=== PATIENT | female | born 1960 | race American Indian/Alaskan Native ===

== ENCOUNTER 2017-05-12 06:21 | Emergency (ER) | payer OTHER ==
[2017-05-12 06:46] LABS: Basophils % (Auto) 0.3 % (0.0-1.8); Eosinophils % (Auto) 0.7 % (0.0-4.3); Hemoglobin 12.4 gm/dl (10.1-14.3); Mean Corpuscular HGB Conc 32 % (30-34); Mean Corpuscular Hemoglobin 26 pg (28-32); Mean Corpuscular Volume 82 fl (79-97); Platelet Count 284 K/mm3 (140-440); Red Blood Count 4.77 M/mm3 (3.65-5.03); White Blood Count 10.3 K/mm3 (4.5-11.0)
[2017-05-12 07:04] LABS: Anion Gap 19 mmol/L; Blood Urea Nitrogen 7 mg/dL (7-17); Carbon Dioxide 24 mmol/L (22-30); Chloride 97.9 mmol/L (98-107); Glucose 242 mg/dL (65-100); Potassium 3.9 mmol/L (3.6-5.0); Sodium 137 mmol/L (137-145)
[2017-05-12] MEDS ORDERED: NACL 0.9% 1000 ML 1,000 ML IV ONE ×2 (07:09→10:10)
[2017-05-12] MEDS ORDERED: TESSALON PERLES PO ONE (07:10)
[2017-05-12] MEDS ORDERED: DUONEB 0.5 MG-3 MG/3 ML SOLN IH ONE (07:10)
[2017-05-12] MEDS ORDERED: MUCINEX ER PO ONE (07:10)
--- NOTE | 2017-05-12 07:46 | XRay Report ---
Chest 2 views: History: Shortness of breath. Findings: Normal cardiomediastinal silhouette. Trachea is midline. No consolidation, pneumothorax or pleural effusion. Impression: No acute cardiopulmonary findings.
[2017-05-12] MEDS ORDERED: ZITHROMAX PO ONE (07:52)
[2017-05-12 08:20] LABS: ISTAT Base Excess 0; ISTAT DEVICE 0; ISTAT HCO3 25.2; ISTAT PCO2 42.3 (35-45); ISTAT PH 7.384 (7.35-7.45); ISTAT PO2 67 (80-105); ISTAT SO2 93; ISTAT TCO2 26
[2017-05-12] MEDS ORDERED: NACL ONE (10:55)
--- NOTE | 2017-05-12 11:45 | Cat Scan Report ---
CTA chest: History: Chest pain. Findings: No evidence of aortic aneurysm or pulmonary embolism. No pleural or pericardial effusion. No mediastinal mass. Normal lung parenchyma. No discrete nodularity or consolidation. Impression: No evidence of pulmonary embolism. No acute lung changes.
[2017-05-12 12:18] VITALS: BP 139/71
--- NOTE | 2017-05-12 14:21 | Emergency Department Report ---
HPI - General Chief Complaint: Upper Respiratory Infection Time Seen by Provider: 05/12/17 07:07 - HPI HPI: The patient is a 56-year-old female with a history of diabetes, whom presents for evaluation of cough and dyspnea. The patient reports coughing since noon yesterday, moderate severity, and associated with soreness of breath since midnight, moderate to severe, exacerbated with coughing or exertion, improved with rest. The patient denies fever, trauma to the chest, chest pain, syncope, hemoptysis, unilateral leg swelling, recent immobilization, history of DVT or PE , recent cancer or chemotherapy. ED Past Medical Hx - Past Medical History Previous Medical History?: Yes Hx Hypertension: Yes Hx Diabetes: Yes - Surgical History Hx Cholecystectomy: Yes Additional Surgical History: Obesity - Social History Smoking Status: Never Smoker Substance Use Type: None - Medications Home Medications: Home Medications Medication Instructions Recorded Confirmed Last Taken Type ALBUTEROL Inhaler [ProAir HFA 2 puff IH QID PRN #1 inhalation 05/12/17 Unknown Rx Inhaler] Azithromycin [Zithromax Z-ALYSSA] 250 mg PO QDAY #6 tablet 05/12/17 Unknown Rx Benzonatate [Tessalon Perles] 100 mg PO Q8HR #20 capsule 05/12/17 Unknown Rx ED Review of Systems ROS: Stated complaint: JAVIER Other details as noted in HPI Constitutional: denies: fever ENT: denies: throat or neck pain Respiratory: reports cough, shortness of breath Cardiovascular: denies: chest pain Endocrine: denies unexplained weight loss or gain Gastrointestinal: denies: abdominal pain, nausea Genitourinary: denies: dysuria Musculoskeletal: denies: leg swelling Skin: denies: rash Neurological: denies: headache Hematological/Lymphatic: denies: easy bleeding or easy bruising Psych: denies sadness or hopelessness Physical Exam - Physical Exam Vital Signs: Vital Signs 05/12/17 05/12/17 05/12/17 06:22 07:19 07:20 Temperature 98.2 F 98.2 F Pulse Rate 101 H 93 H Pulse Rate [ Bilateral Upper Lobe] Respiratory 20 18 Rate Respiratory Rate [Bilateral Upper Lobe] Blood Pressure 169/93 130/56 [Right] O2 Sat by Pulse 96 94 94 Oximetry 05/12/17 05/12/17 05/12/17 07:49 07:57 12:15 Temperature Pulse Rate 90 Pulse Rate [ 90 92 H Bilateral Upper Lobe] Respiratory 18 Rate Respiratory 18 18 Rate [Bilateral Upper Lobe] Blood Pressure 139/71 [Right] O2 Sat by Pulse 100 Oximetry Physical Exam: General: well-nourished, well-developed, no acute distress Head: Normocephalic, atraumatic Eyes: normal sclera ENT: Mucous membranes are pale and dry, nasal membrane edema and congestion present Neck: No neck stiffness, no cervical adenopathy Respiratory: Breath sounds equal bilaterally, no wheezing, rales, or rhonchi Cardio: S1 and S2 present, no murmurs, rubs, gallops, capillary refill is delayed Abdomen: Normoactive bowel sounds, soft abdomen, no abdominal tenderness, no rigidity, no guarding or rebound tenderness Musc: No pitting edema Skin: No rash Neuro: no facial drooping, normal speech Psych: Normal affect ED Course Vital Signs 05/12/17 05/12/17 05/12/17 06:22 07:19 07:20 Temperature 98.2 F 98.2 F Pulse Rate 101 H 93 H Pulse Rate [ Bilateral Upper Lobe] Respiratory 20 18 Rate Respiratory Rate [Bilateral Upper Lobe] Blood Pressure 169/93 130/56 [Right] O2 Sat by Pulse 96 94 94 Oximetry 05/12/17 05/12/17 05/12/17 07:49 07:57 12:15 Temperature Pulse Rate 90 Pulse Rate [ 90 92 H Bilateral Upper Lobe] Respiratory 18 Rate Respiratory 18 18 Rate [Bilateral Upper Lobe] Blood Pressure 139/71 [Right] O2 Sat by Pulse 100 Oximetry ED Medical Decision Making - Lab Data Result diagrams: 05/12/17 06:32 05/12/17 06:32 - Medical Decision Making The patient was seen and examined by myself. The patient is placed on a compressor repairer and continuous pulse ox. On initial evaluation, the patient was found to be in no distress. Evaluation orders were placed. The patient is given 1 L normal saline fluid bolus for treatment of dehydration. X-ray of the chest is unremarkable. The patient is given a DuoNeb breathing treatment for treatment of her shortness of breath, Tessalon Perles for cough. Lab results reveal low pO2 on ABG, elevated glucose, and elevated lactic acid. Patient given additional 1 L normal saline fluid bolus for treatment of hyperglycemia and lactacidosis. CT scan of the chest is negative for pulmonary medicine. A repeat lactic acid reveals increase lactic acid level now greater than 3. The patient was informed of decision to admit to the hospital for continued treatment. The patient declined admission. The patient was informed of risks of signing out including worsening symptoms, respiratory arrest, cardiac arrest , and . The patient is competent and able to verbalize risk of leaving AGAINST MEDICAL ADVICE versus benefits of admission. The patient signs out AGAINST MEDICAL ADVICE Critical care attestation.: If time is entered above; I have spent that time in minutes in the direct care of this critically ill patient, excluding procedure time. ED Disposition Clinical Impression: Hypoxemia, Acute hyperglycemia, Dehydration, Lactic acidosis Acute bronchitis Qualifiers: Bronchitis organism: unspecified organism Qualified Code(s): J20.9 - Acute bronchitis, unspecified Disposition: LEFT AGAINST MED ADVICE Is pt being admited?: No Does the pt Need Aspirin: No Condition: Serious Instructions: Dehydration (ED), Acute Bronchitis (ED), Hypoxia (ED), Diabetic Hyperglycemia (ED) Additional Instructions: Return to an emergency department immediately should you change your mind regarding admission to the hospital for continued management. Prescriptions: ALBUTEROL Inhaler [ProAir HFA Inhaler] 2 puff IH QID PRN #1 inhalation PRN Reason: Shortness Of Breath Azithromycin [Zithromax Z-ALYSSA] 250 mg PO QDAY #6 tablet Benzonatate [Tessalon Perles] 100 mg PO Q8HR #20 capsule Referrals: PRIMARY CARE, [Primary Care Provider] - 3-5 Days Forms: AMA Form, Work/School Release Form(ED) Time of Disposition: 14:18
== END 2017-05-12 14:30 | disposition left against medical advice (07) ==
LOC: ED 06:21
DX: J20.9 Acute bronchitis, unspecified (principal); R09.02 Hypoxemia; E86.0 Dehydration; E87.2 Acidosis; E11.65 Type 2 diabetes mellitus with hyperglycemia; I10 Essential (primary) hypertension
CPT/HCPCS: 36415; 71020; 71275; 80048; 82140; 82803; 82805; 82962; 83735; 84484; 85025; 93005; 93010; 94640; 96361; 96374; 99285; J7030; Q9967; J1815